=== PATIENT | male | born 1930 | race Two or more races ===

== ENCOUNTER 2018-12-13 16:00 | Inpatient (IN) | payer OTHER, MEDICARE | END 2018-12-23 14:00 | disposition home or self-care (01) | LOC: ER 16:00 → TELE 22:47 → TELE-EAST 12-14 15:59 | DX: A41.9 Sepsis, unspecified organism (principal); J96.01 Acute respiratory failure with hypoxia; N17.0 Acute kidney failure with tubular necrosis; J18.9 Pneumonia, unspecified organism; K55.9 Vascular disorder of intestine, unspecified; E87.2 Acidosis; N40.1 Benign prostatic hyperplasia with lower urinary tract symptoms; R33.8 Other retention of urine; K31.84 Gastroparesis; N18.9 Chronic kidney disease, unspecified; I12.9 Hypertensive chronic kidney disease with stage 1 through stage 4 chronic kidney disease, or unspecified chronic kidney disease; E11.22 Type 2 diabetes mellitus with diabetic chronic kidney disease; E66.01 Morbid (severe) obesity due to excess calories; E11.65 Type 2 diabetes mellitus with hyperglycemia; I48.91 Unspecified atrial fibrillation; R31.0 Gross hematuria; K63.89 Other specified diseases of intestine ==